=== PATIENT | female | born 1950 | race Caucasian/White ===

== ENCOUNTER 2018-09-02 09:06 | Emergency (ER) | payer OTHER ==
[~2018-09-02] VITALS: Ht 165.1 cm; Wt 83.5 kg
[2018-09-02] MEDS ORDERED: BP MED (09:48)
[2018-09-02] MEDS ORDERED: Norco 5-325 Ta1 EACH PO (10:12)
[2018-09-02] MEDS ORDERED: IBUP600 PO (10:12)
== END 2018-09-02 10:26 | disposition home or self-care (01) ==
LOC: ER 09:06
DX: M54.41 Lumbago with sciatica, right side (principal); I10 Essential (primary) hypertension
CPT/HCPCS: 72100; 99283-25

== ENCOUNTER 2018-11-29 14:36 | Observation (INO) | payer SELFPAY ==
[~2018-11-29] VITALS: Ht 165.1 cm; Wt 82.4 kg
[~2018-11-29 14:36] MED LIST: BP MED; IBUP600 PO; Norco 5-325 Ta1 EACH PO
[2018-11-29 16:18] LABS: Hematocrit 39.9 % (33.0-51.0); Hemoglobin 12.7 g/dL (11.5-16.0); Mean Corpuscular HGB 29.8 pg (26.0-34.0); Mean Corpuscular HGB Conc 31.8 g/dL (31.5-36.5); Mean Corpuscular Volume 94 fL (80-100); Platelet Count 156 K/mm3 (150-400); RDW Standard Deviation 48.7 fL (35.1-46.3); Red Blood Cell Count 4.26 M/mm3 (3.80-5.20); White Blood Cell Count 8.65 K/mm3 (4.00-11.30)
[2018-11-29 16:21] LABS: Mean Platelet Volume 13.8 fL (9.1-12.4)
[2018-11-29 16:32] LABS: Albumin, Blood 3.4 g/dL (3.4-5.0); Albumin/Globulin Ratio 0.8 (0.8-1.8); Bilirubin, Total 0.3 mg/dL (0.1-1.0); Calcium, Blood 8.7 mg/dL (8.5-10.1); Creatinine, Blood 1.98 mg/dL (0.40-1.00); Globulin, Blood 4.3 g/dL (2.2-4.0); Potassium, Blood 4.1 mmol/L (3.5-5.5); Total Protein, Blood 7.7 g/dL (6.4-8.2)
[2018-11-29 16:46] LABS: BAND PERCENT MAN 5 % (0-8); BASOPHILS PERCENT MAN 0 % (0-2); EOSINOPHILS PERCENT MAN 0 % (0-6); LYMPHOCYTES % ATYPICAL MANUAL 1 % (0-0); LYMPHOCYTES ABSOLUTE MAN 2.33 K/mm3 (0.84-5.20); LYMPHOCYTES PERCENT MAN 26 % (21-46); MONOCYTES ABSOLUTE MAN 0.51 K/mm3 (0.16-1.47); MONOCYTES PERCENT MAN 6 % (4-13); NEUTROPHILS ABSOLUTE MAN 5.79 K/mm3 (1.96-9.15); SEG NEUTROPHILS PERCENT MAN 62 % (41-73); TOTAL CELLS COUNTED 100
[2018-11-29 18:23] LABS: Source, Urine Clean Catch
[2018-11-29 18:27] LABS: Bilirubin, Urine Neg (Neg); Blood, Urine Neg (Neg); Glucose Qualitative, Urine Neg (Neg); Ketones, Urine Neg (Neg); Leukocyte Esterase, Urine 1+ (Neg); Nitrite, Urine Neg (Neg); Protein, Urine 1+ (Neg); Urobilinogen, Urine NORM (Normal)
[2018-11-29] MEDS ORDERED: ZESTORETIC 20-251 EA PO (18:57)
[2018-11-29] MEDS ORDERED: AMLO10 PO (18:57)
[2018-11-29 19:19] LABS: Appearance, Urine Hazy (Clear); Color, Urine Yellow (P-Yellow)
[2018-11-29 19:20] LABS: Bacteria Many /hpf; Red Blood Cells, Urine 0-2 /hpf (0-2); Squamous Epithelial Cells Mod /hpf (Few)
[2018-11-29] MEDS ORDERED: LABE100 PO (21:32)
[2018-11-30 04:58] LABS: Bun/Creatinine Ratio 68.7 (12.0-20.0); Calcium, Blood 7.9 mg/dL (8.5-10.1); Creatinine, Blood 1.15 mg/dL (0.40-1.00); Potassium, Blood 3.9 mmol/L (3.5-5.5)
--- NOTE | 2018-11-30 05:08 | NUR ---
SHIFT SUMMARY & TRANSFER NOTE: PT NEW ADMIT EARLIER IN SHIFT. PT AMBULATES TO BED INDEPENDENTLY FROM STRETCHER. STEADY GAIT. PT IS A&O X 4. REPORTS HAVING N/V/D X 4 DAYS AGO, AND HAS FELT WEAK EVER SINCE. DECIDED TO COME TO ED WEAKNESS HAS NOT IMPROVED. PT FOUND AT HAVE PHILIP S/T DEHYDRATION. PLAN IS TO AGGRESIVELY REHYDRATE AND MONIOR KIDNEY FUNCTION. PT UPDATED AND AWARE OF THIS PLAN. PT INDEPENDENT IN RM. LR RUNNING @ 150 ML/HR. RESP PANEL SENT; PENDING RESULTS. VSS. KIDNEY FUNCTION IMPROVED WITH THIS AM LABS. LABS THIS AM ARE FOLLOWS: BUN @ 79, GFR @ 50, CRE @ 1.15. NO OTHER CHANGES TO REPORT. WILL CONT TO MONITOR AND PROVIDE CARE UNTIL PRESUMED BY ONCOMING RN.
[2018-11-30 05:51] LABS: Adenovirus Not Detected (NOT DETECT); Bordetella pertussis Not Detected (NOT DETECT); Chlamydophila pneumoniae Not Detected (NOT DETECT); Coronavirus 229E Not Detected (NOT DETECT); Coronavirus HKU1 Not Detected (NOT DETECT); Coronavirus NL63 Not Detected (NOT DETECT); Coronavirus OC43 Not Detected (NOT DETECT); Human Metapneumovirus Not Detected (NOT DETECT); Human Rhinovirus/Enterovirus Not Detected (NOT DETECT); Influenza A Not Detected (NOT DETECT); Influenza A/2009-H1 Not Detected (NOT DETECT); Influenza A/H1 Not Detected (NOT DETECT); Influenza A/H3 Not Detected (NOT DETECT); Influenza B Not Detected (NOT DETECT); Mycoplasma pneumoniae Not Detected (NOT DETECT); Parainfluenza Virus 1 Not Detected (NOT DETECT); Parainfluenza Virus 2 Not Detected (NOT DETECT); Parainfluenza Virus 3 Not Detected (NOT DETECT); Parainfluenza Virus 4 Not Detected (NOT DETECT); Respiratory Syncytial Virus Not Detected (NOT DETECT)
[2018-11-30 06:55] LABS: Eosinophils-Raw #,Urine 0
[2018-11-30] MEDS ORDERED: ACET325 PO (12:39)
[2018-11-30] MEDS ORDERED: COMBIVENT RESPIM4 GM INH (12:44)
[2018-11-30] MEDS ORDERED: SACC250C PO (12:45)
[2018-11-30] MEDS ORDERED: ONDA4ODT MM (12:45)
[2018-11-30] MEDS ORDERED: ALBU90OI INH (12:46)
[2018-11-30] MEDS ORDERED: AZIT500 PO (12:46)
[2018-11-30] MEDS ORDERED: CEPH500 PO (12:47)
[2018-11-30] MEDS ORDERED: NICO21TP TOP (12:48)
[2018-11-30] MEDS ORDERED: Prednisone50 MG PO (12:49)
--- NOTE | 2018-11-30 13:03 | NUR ---
PATIENT D/C'D TO HOME. MEDICATIONS FAXED TO [facility]. REPAIRER [employer] [place] TO CALL AND SET UP A PCP FOR PATIENT. PATIENT REFUSED TO STAY FOR HOME 02 EVALUATION. D/C INSTRUCTIONS AND EDUCATIONS DISCUSSED WITH PATIENT AND COPY PROVIDED. PATIENT DENIES ANY FURTHER QUESTIONS OR CONCERNS.
== END 2018-11-30 13:06 | disposition home or self-care (01) ==
LOC: ER 14:36 → MEDS 14:37 → ENPENDDIS 11-30 11:38 → MEDS 11-30 13:06
PROVIDERS: Emergency Medicine; Physician Assistant; ADMIT Internal Medicine
DX: N17.9 Acute kidney failure, unspecified (principal); N39.0 Urinary tract infection, site not specified; J44.9 Chronic obstructive pulmonary disease, unspecified; R19.7 Diarrhea, unspecified; I10 Essential (primary) hypertension; E87.1 Hypo-osmolality and hyponatremia; F17.210 Nicotine dependence, cigarettes, uncomplicated; Z79.01 Long term (current) use of anticoagulants; Z79.899 Other long term (current) drug therapy
CPT/HCPCS: 36415; 80048; 80053; 81001; 83690; 85025; 87077; 87086; 87186; 87205; 87486; 87581; 87633; 87798; 96360; 96361; 99284-25; G0378; J7030; J7120

== ENCOUNTER → 2018-12-07 | Outpatient (CLI) | payer MEDICARE ==
[~2018-12-07] MED LIST changes: +ACET325 PO; +ALBU90OI INH; +AMLO10 PO; +AZIT500 PO; +CEPH500 PO; +COMBIVENT RESPIM4 GM INH; +LABE100 PO; +NICO21TP TOP; +ONDA4ODT MM; +Prednisone50 MG PO; +SACC250C PO; +ZESTORETIC 20-251 EA PO
[2018-12-07 17:31] LABS: Source, Urine Voided
[2018-12-07 17:52] LABS: Appearance, Urine Hazy (Clear); Bilirubin, Urine Neg (Neg); Blood, Urine Neg (Neg); Color, Urine Yellow (P-Yellow); Glucose Qualitative, Urine Neg (Neg); Ketones, Urine Neg (Neg); Leukocyte Esterase, Urine Neg (Neg); Nitrite, Urine Neg (Neg); Protein, Urine Neg (Neg); Urobilinogen, Urine NORM (Normal)
[2018-12-07 18:42] LABS: Bacteria Rare /hpf; Red Blood Cells, Urine Not Seen /hpf (0-2); Squamous Epithelial Cells Mod /hpf (Few); White Blood Cells, Urine Not Seen /hpf (0-5)
== END | disposition home or self-care (01) ==
LOC: LAB SHORT 17:29 → LAB 17:29
PROVIDERS: Internal Medicine Nephrology
DX: N39.0 Urinary tract infection, site not specified (principal)
CPT/HCPCS: 81001; 87086

== ENCOUNTER 2021-01-27 06:32 | Emergency (ER) | payer SELFPAY ==
[~2021-01-27] VITALS: Ht 165.1 cm; Wt 90.7 kg
[2021-01-27] MEDS ORDERED: AMLO10 PO (07:46)
== END 2021-01-27 08:54 | disposition home or self-care (01) ==
LOC: ER 06:32
DX: M79.604 Pain in right leg (principal); I10 Essential (primary) hypertension; Z79.899 Other long term (current) drug therapy
CPT/HCPCS: 93971; 99283-25

== ENCOUNTER 2023-01-26 15:12 | Emergency (ER) | payer SELFPAY ==
[~2023-01-26] VITALS: Ht 165.1 cm; Wt 81.7 kg
[2023-01-26 15:32] VITALS: BP 139/77
== END 2023-01-26 15:48 | disposition home or self-care (01) ==
LOC: ER 15:12
DX: M70.22 Olecranon bursitis, left elbow (principal); I10 Essential (primary) hypertension; J44.9 Chronic obstructive pulmonary disease, unspecified; Z79.899 Other long term (current) drug therapy
CPT/HCPCS: 99282